=== PATIENT | female | born 1995 | race Caucasian/White ===

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

== ENCOUNTER 2017-07-23 02:23 | Emergency (ER) | payer SELFPAY ==
[2016-03-22 18:31] VITALS: BMI 38.7
== END 2017-07-23 03:35 | disposition home or self-care (01) ==
LOC: D.ER 02:23
DX: H66.92 Otitis media, unspecified, left ear (principal); J06.9 Acute upper respiratory infection, unspecified

== ENCOUNTER 2020-07-21 19:04 | Outpatient (CLI) | payer SELFPAY ==
[2016-03-22 18:31] VITALS: BMI 38.7
== END 2020-07-21 20:23 ==
LOC: D.LDO 19:04
PROVIDERS: ATTEND Obstetrics & Gynecology
DX: O47.9 False labor, unspecified (principal)

== ENCOUNTER 2020-08-07 05:31 | Inpatient (IN) | payer MEDICAID ==
[~2020-08-07] VITALS: Ht 157.5 cm; Wt 112.0 kg
[2020-08-07] MEDS ORDERED: PROTONIX20 MG PO (06:35)
[2020-08-07] MEDS ORDERED: FAMOTIDINE10 MG PO (06:36)
[2020-08-07] MEDS ORDERED: PRENAVITE1 TAB PO (06:37)
[2020-08-07] MEDS ORDERED: FOLATE0.4 MG PO (06:38)
[2020-08-07 06:39] VITALS: BP 129/78; Ht 157.5 cm; Wt 112.0 kg
[2020-08-07 06:50] LABS: HEMATOCRIT 36.9 % (36.0-48.0); HEMOGLOBIN 12.1 g/dL (12-16); MCH 27.1 pg (26.0-34.0); MCHC 32.8 g/dL (31.0-37.0); MCV 82.7 fL (80.0-100.0); MEAN PLATELET VOLUME 11.1 fL (7.4-10.4); RBC 4.46 10x6/uL (4.00-5.40); RDW 14.8 % (11.5-14.5); WBC 13.4 10x3/uL (4.8-10.8)
[2020-08-07 07:22] LABS: UDS - AMPHET NEGATIVE QUAL (NEGATIVE); UDS - BARB NEGATIVE QUAL (NEGATIVE); UDS - BENZO NEGATIVE QUAL (NEGATIVE); UDS - COCAINE NEGATIVE QUAL (NEGATIVE); UDS - OPIATE NEGATIVE QUAL (NEGATIVE); UDS - PCP NEGATIVE QUAL (NEGATIVE); UDS - THC POSITIVE QUAL (NEGATIVE)
--- NOTE | 2020-08-07 21:15 | NUR ---
PT TRANSFERRED AMBULATORY TO ROOM 1257 FOR REMAINDER OF HOSPITAL STAY. PT ORIENTED TO ROOM AND CALL LIGHT. NO DISTRESS NOTED. Asia LEMUS RN
--- NOTE | 2020-08-07 22:51 | NUR ---
PT DENIES PAIN AT THIS TIME. NO DSITRESS NOTED. REQUESTING MEDICATION FOR INDIGESTION. Asia TERRY RN
[2020-08-07 23:12] VITALS: BP 127/76
--- NOTE | 2020-08-07 23:14 | NUR ---
PT MEDICATED FOR INDIGESTION. NO DISTRESS NTOED. Asia LEMUS RN
--- NOTE | 2020-08-08 01:40 | NUR ---
PT REC'D IN BED AT THIS TIME. DENIES PAIN. NO NEEDS VOICED AT THIS TIME. Asia LEMUS RN
--- NOTE | 2020-08-08 03:20 | NUR ---
PT REC'D UP IN ROOM AT THIS TIME. NO DISTRESS NOTED. NO NEEDS VOICED, Asia LEMUS RN
--- NOTE | 2020-08-08 05:51 | NUR ---
PT MEDICATED FOR CRAMPING. RATES PAIN 5/10. NO DISTRESS NOTED. Asia LEMUS RN
[2020-08-08 06:33] LABS: BASOPHILS 0.1 % (0-2); EOSINOPHILS 0.3 % (0-7); HEMOGLOBIN 11.3 g/dL (12-16); IMMATURE GRANULOCYTES 0.3 % (0-5); LYMPHOCYTE ABS# 2.04 10x3/uL (1.18-3.74); MCH 26.8 pg (26.0-34.0); MCHC 32.3 g/dL (31.0-37.0); MCV 82.9 fL (80.0-100.0); MEAN PLATELET VOLUME 10.8 fL (7.4-10.4); MONOCYTES 13.7 % (2-11); NEUTROPHIL ABS# 13.89 10x3/uL (1.56-6.13); NEUTROPHILS 74.6 % (40-80); PLATELET COUNT 179 10x3/uL (130-400); RBC 4.22 10x6/uL (4.00-5.40); RDW 14.9 % (11.5-14.5)
[2020-08-08 06:40] LABS: WBC 18.6 10x3/uL (4.8-10.8)
[2020-08-08 07:15] LABS: RAPID PLASMA REAGIN Non Reactive (Non Reactive)
[2020-08-08 07:50] VITALS: BP 124/81
--- NOTE | 2020-08-08 07:50 | NUR ---
RECEIVED PT SITTING UP IN BED. AWAKE. HOLDS INFANT WITH MUCH WARMTH SHOWN. VSS. HRRR WITHOUT AUDIBLE MURMUR. BBS CLEAR. BS X 4. ABDOMEN SOFT/NON-DISTENDED. FUNDUS FIRM AT U/1. RUBRA LOCHIA SMALL AMT. PT DENIES HEAVY BLEEDING OR PASSING CLOTS. PERINEUM WITHOUT EDEMA. NEG HOMANS' SIGN. PPP. NO EDEMA NOTED TO BLE. PT C/O ABDOMINAL CRAMPING OF "6" ON 0-10 PAIN SCALE. STATES VOIDING WITHOUT DIFFICULTY. SR UP X 2. CALL LIGHT IN REACH.
--- NOTE | 2020-08-08 08:09 | NUR ---
NORCO 5/325 GIVEN PO ORDERED. PT INSTRUCTED ON MED. VERBALIZES UNDERSTANDING.
--- NOTE | 2020-08-08 09:45 | NUR ---
PT SITTING UP IN BED. CARING FOR . DENIES C/O OR NEEDS. STATES DESIRE TO DC HOME TONIGHT IF DISCHARGED. WILL NOTIFY
--- NOTE | 2020-08-08 11:00 | NUR ---
PT SITTING UP IN BED. CARING FOR INFANT. DENIES C/O PAIN OR NEEDS.
--- NOTE | 2020-08-08 12:28 | NUR ---
PT CALLS ON LIGHT. REQUESTS AND RECEIVES PERIPADS. PT ALSO PROVIDED WITH PERICARE BOTTLE AND BETADINE PER PT REQUEST.
[2020-08-08 13:57] VITALS: BP 116/75
--- NOTE | 2020-08-08 13:58 | NUR ---
VSS. PT C/O ABDOMINAL CRAMPING OF "5" ON 0-10 PAIN SCALE. NORCO 5/325 AND MOTRIN 600 MG GIVEN PO ORDERED. PT INSTRUCTED ON MEDS. VERBALIZES UNDERSTANDING.
--- NOTE | 2020-08-08 14:45 | NUR ---
PT SITTING UP IN BED. STATES PAIN MED RELIEVED PAIN. DENIES NEEDS OR C/O.
--- NOTE | 2020-08-08 16:38 | NUR ---
DR VILLAGRAN TO ROOM. VISITS WITH PT.
--- NOTE | 2020-08-08 19:00 | NUR ---
BEDSIDE SHIFT REPORT RCVD FROM Gely ANGELA RN. PT DENIES PAIN OR NEEDS AT THIS TIME.
[2020-08-08 19:30] VITALS: BP 109/65; BP 113/69
--- NOTE | 2020-08-08 19:30 | NUR ---
PATIENT ASSESSMENT COMPLETED AT BEDSIDE. PATIENT DENIES PAIN AT THIS TIME. STATES SHE WAS GIVEN PAIN MEDICATION A COUPLE OF HOURS AGO AND THIS IS WORKING FOR HER PAIN. PLAN OF CARE FOR THE NIGHT EXPLAIN AT BEDSIDE. PATIENT DENIES QUESTIONS OR CONCERNS. FUNDUS MIDLINE AND FIRM U-1. BLEEDING SCANT TO LIGHT. PATIENT DENIES PRESENCE OF BLOOD CLOTS. INCISION OPEN TO AIR. CLEAN AND DRY. NO SIGNS OF INFECTION NOTED AROUND AREA. MANJU INTACT AND NO DRAINAGE NOTED. SIDE RAILS UPX2, BED IN LOW POSITION, CALL LIGHT WITHIN REACH.
--- NOTE | 2020-08-08 19:30 | NUR ---
SHIFT ASSESSMENT COMPLETED AT THIS TIME. SEE FLOWSHEET. PT DENIES PAIN OR NEEDS. BED LOW, WHEELS LOCKED, CL AND PHONE WITHIN REACH. WILL CONT TO MONITOR PRN.
--- NOTE | 2020-08-08 21:40 | NUR ---
ROUNDS MADE. PT DENIES PAIN OR NEEDS AT THIS TIME.
--- NOTE | 2020-08-08 23:05 | NUR ---
NORCO AND MOTRIN GIVEN PER ORDERS FOR PAIN RATED 6/10 AT THIS TIME. PT DENIES FURTHER NEEDS.
--- NOTE | 2020-08-09 00:17 | NUR ---
PT DENIES PAIN OR NEEDS AT THIS TIME. WILL CONTINUE TO MONITOR.
--- NOTE | 2020-08-09 01:45 | NUR ---
ROUNDS MADE. INFANT HAS GONE TO NBN DUE TO MOM STATING SHE FEELS TIRED. PT DENIES PAIN OR NEEDS. REPORTS SHE IS GOING TO SLEEP. WILL CONTINUE TO MONITOR.
--- NOTE | 2020-08-09 04:19 | NUR ---
ROUNDS MADE. PT RESTING IN LEFT LATERAL. RESPIRATIONS EVEN AND UNLABORED. PT LEFT UNDISTURBED.
--- NOTE | 2020-08-09 07:04 | NUR ---
BEDSIDE REPORT COMPLETED. PT IS AWAKE AND FEEDING . SHE RATES HER PAIN AT 4/10 BUT DENIES PAIN MED UNTIL AFTER BREAKFAST AND WILL CALL WHEN READY TO TAKE. AM ASSESSMENT COMPLETED CHARTED TO FLOWSHEET. SIDE RAILS UP X 2 WITH CALL LIGHT IN REACH.
[2020-08-09] MEDS ORDERED: HYDROCODON-ACE1 EAC7 PO (11:06)
[2020-08-09] MEDS ORDERED: IBUPROFEN600 MG PO (11:07)
--- NOTE | 2020-08-09 11:42 | NUR ---
PT GIVEN PRINTED INFO ABOUT MMR, STATES HER UNDERSTANDING AND DENIES QUESTIONS. MMR TO LEFT UPPER ARM SCANNED TO EMAR.
--- NOTE | 2020-08-09 11:45 | NUR ---
VERBAL AND WRITTEN DISCHARGE INSTRUCTIONS GONE OVER, SHE IS GIVEN A WRITTEN SCRIPT FOR NORCO 5/325MG AND MOTRIN 600MG AND CAN TELL NURSE NEXT TIME SHE CAN TAKE EITHER MED. SHE IS WAITING ON DISCHARGE AND WILL CALL NURSE WHEN READY FOR WHEELCHAIR.
--- NOTE | 2020-08-09 12:30 | NUR ---
TAKEN OUT BY WHEELCHAIR WITH SECURED IN TO CARRIER. HOME WITH SIG OTHER BY PRIVATE CAR
[2020-08-10 18:35] LABS: UDSC - AMPHET Negative ng/mL (Cutoff=1000); UDSC - BARB Negative ng/mL (Cutoff=300); UDSC - BENZO Negative ng/mL (Cutoff=300); UDSC - COC Negative ng/mL (Cutoff=300); UDSC - METH Negative ng/mL (Cutoff=300); UDSC - OPIATES Negative ng/mL (Cutoff=300); UDSC - PCP Negative ng/mL (Cutoff=25); UDSC - PROPOXY Negative ng/mL (Cutoff=300); UDSC - THC Positive (Cutoff=50)
== END 2020-08-09 12:30 | disposition home or self-care (01) | DRG 806 ==
LOC: D.LD 05:31
PROVIDERS: ADMIT Obstetrics & Gynecology; ATTEND Obstetrics & Gynecology
PROC: 3E033VJ Introduction of Other Hormone into Peripheral Vein, Percutaneous Approach (ICD-10-PCS; principal; 2020-08-07)
PROC: 10E0XZZ Delivery of Products of Conception, External Approach (ICD-10-PCS; 2020-08-07)
PROC: 10907ZC Drainage of Amniotic Fluid, Therapeutic from Products of Conception, Via Natural or Artificial Opening (ICD-10-PCS; 2020-08-07)
DX: O71.4 Obstetric high vaginal laceration alone (principal); O98.82 Other maternal infectious and parasitic diseases complicating childbirth; Z37.0 Single live birth; Z3A.39 39 weeks gestation of pregnancy; O75.89 Other specified complications of labor and delivery